=== PATIENT | female | born 1980 | race Caucasian/White ===

== ENCOUNTER 2019-05-01 13:51 | Emergency (ER) | payer OTHER ==
[~2019-05-01] VITALS: Ht 167.6 cm; Wt 90.7 kg
[2019-05-01] MEDS ORDERED: MACROBID 100 M100 MG PO (14:16)
== END 2019-05-01 19:01 | disposition home or self-care (01) ==
LOC: ER 13:51
DX: N20.0 Calculus of kidney (principal); N39.0 Urinary tract infection, site not specified; N83.291 Other ovarian cyst, right side; I95.89 Other hypotension